=== PATIENT | female | born 1965 | race Caucasian/White ===

== ENCOUNTER 2016-08-03 16:40 | Emergency (ER) | payer OTHER ==
[~2016-08-03] VITALS: Ht 152.4 cm; Wt 62.6 kg
[~2016-08-03 16:40] MED LIST: ALPH-E-MIXED-4400 IU PO; ANTIVERT 12.512.5 MG PO; ANTIVERT 25 MG25 M1 PO; ANTIVERT 25MG #1 PAC PO; ASPIR 8181 MG PO; CARISOPRODOL350 MG PO; CIPRO 500MG TA500 MG PO; CIPRO500 M1 PO; CO Q-10 100 MG-1 SGL PO; CO-Q-10 200 MG-1 SGL PO; CYCLOBENZAPRINE5 M1 PO; EPIPEN ADULT A0.3 MG IM; FIORICET 325 MG1 TAB PO; FISH OIL1000 MG PO; FLAGYL500 MG PO; GUAIFENESIN-COD10 ML PO; HYDROXYZINE HCL25 MG PO; KETOROLAC TR30 MG/ML IM; LAMOTRIGINE25 M3; LEVOTHYROXIN0.025 MG PO; LOMOTIL 2.5-0.1 EACH PO; LORAZEPAM0.5 MG PO; MAGNEBIND 300 21 TAB PO; MEDROL4 MG PO; MULTIVITAMIN1 TAB PO; NORCO 325 MG-101 TAB PO; PHENERGAN25 M1 PO; PHENERGAN25 MG PR; PROMETHAZINE HC25 M1 PO; PROMETHAZINE HC25 M2 PR; SERTRALINE HCL100 MG PO; SERTRALINE HYDR25 MG PO; TOPAMAX 100MG100 MG PO; TOPIRAMATE200 MG PO; TOPIRAMATE50 MG PO; TUMERIC PO; VERAPAMIL HCL120 M2 PO; VICODIN5-300 PO; VITAB121000 PO; VITAMIN B COMPL1 CAP PO; VITAMIN C500 M3 PO; VITAMIN D1000 IU PO; ZOFRAN ODT4 M1 SL; ZOFRAN ODT4 MG PO; ZOFRAN4 M1 PO; ZOLPIDEM TARTRA10 M1 PO; [UNRECOGNIZED DRUG - OTHER] NAS
--- NOTE | 2016-08-03 18:22 | ED HEADACHE COMPLAINT ---
History of Present Illness General Chief Complaint: Headache Stated Complaint: HEADACHE Source: patient, old records Exam Limitations: no limitations Vital Signs & Intake/Output Vital Signs & Intake/Output Vital Signs Date Time Temp Pulse Resp B/P Pulse O2 O2 Flow FiO2 Ox Delivery Rate 08/03 1854 96 08/03 1851 98.0 08/03 1728 98.0 74 20 137/82 97 Room Air Allergies Coded Allergies: cefaclor (From CECLOR) (RASH AND HIVES 03/07/16) divalproex sodium (From DEPAKOTE) (RASH AND HIVES 03/07/16) erythromycin base (RASH AND HIVES 03/07/16) fentanyl (TONGUE SWELLING 03/07/16) hydromorphone (CAUSES LABORED BREATHING PER PT 03/07/16) metoclopramide (From REGLAN) (TONGUE SWELLING 03/07/16) prochlorperazine (From COMPAZINE) (TONGUE SWELLING 03/07/16) shellfish derived (ANAPHYLAXIS 03/07/16) sumatriptan (From IMITREX) (POTENTIAL TO CAUSE A STROKE PER PT 03/07/16) Uncoded Allergies: 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) Reconcile Medications Acetaminophen/Butalbital/Caf (Fioricet 325 MG-50 MG-40 MG) 1 TAB TAB 1 TAB PO 3XW PRN MIGRAINES (Reported) Acetaminophen/Hydrocodone Bi ([place] 325 MG-10 MG) 1 TAB TAB 1 TAB PO TID PRN MIGRAINES/PAIN (Reported) Ascorbic Acid (Vitamin C) 500 MG TAB 1 TAB PO DAILY SUPPLEMENT (Reported) Aspirin (Ecotrin) 81 MG TABLET.DR 1 TAB PO DAILY MIGRAINES (Reported) CALCIUM CARBONATE/MAG CARB (Magnebind 300 Tablet) (Unknown Strength) TABLET ( Unknown Dose) PO DAILY SUPPLEMENT (Reported) Carisoprodol 350 MG TABLET 1 TAB PO TID FIBROMYALGIA (Reported) Cholecalciferol (Vitamin D3) 1,000 UNIT TABLET 1,000 IU PO DAILY VITAMIN D SUPPLEMET (Reported) Ciprofloxacin HCl (Cipro) 500 MG TABLET 1 TAB PO BID intestinal infection Coenzyme Q10/Vitamin E (Co Q-10 100 MG-5 Iu) 1 SGL SGL 1 SGL PO DAILY SUPPLEMENT (Reported) Diphenoxylate HCl/Atropine (Lomotil 2.5-0.025 MG Tablet) 1 EACH TABLET 1 TAB PO 4 TIMES/DAY PRN DIARRHEA TWENTY... [id number] Epinephrine (Epipen 2-Delmar) 0.3 MG/0.3 ML AUTO.INJCT 0.3 MG IM PRN ANAPHYLAXIS (Reported) Ketorolac Tromethamine 30 MG/ML RAMIRO 1 ML IM EVERY 2 WEEKS PRN MIGRAINES ( Reported) Levothyroxine Sodium 25 MCG TABLET 0.025 MG PO DAILY AC THYROID (Reported) Lorazepam 0.5 MG TABLET 1 TAB PO BID PRN PANIC ATTACK (Reported) Meclizine (Antivert) 12.5 MG TAB 1 TAB PO TID VERTIGO (Reported) Metronidazole (Flagyl) 500 MG TABLET 1 TAB PO 4 TIMES/DAY intestinal infection Multivitamin (Multiple Vitamins) 1 EACH TABLET 1 TAB PO DAILY SUPPLEMENT ( Reported) OMEGA-3/DHA/EPA/FISH OIL (Carter-3 Fish Oil 1,000 MG Sftg) 300 MG-1,000 MG CAPSULE 1 SGL PO DAILY SUPPLEMENT (Reported) Ondansetron (Zofran Odt) 4 MG TAB.RAPDIS 1 TAB SL TID PRN NAUSEA Promethazine Hydrochloride (Phenergan) 25 MG SUP 1 SUPP MA PRN MIGRAINES ( Reported) Robitussin AC (Guaifenesin-Codeine Syrup) 200 MG-20 MG/10 ML LIQUID 10 ML PO Q6HR PRN COUGH Sertraline HCl 100 MG TABLET 1 TAB PO DAILY MENTAL HEALTH (Reported) Topiramate 200 MG TABLET 1 TAB PO DAILY MIGRAINES (Reported) Topiramate (Topamax 100MG) 100 MG TAB 1 TAB PO DAILY MIGRAINES (Reported) [TUMERIC] 1 CAP PO DAILY SUPPLEMENT (Reported) VERAPAMIL HCL (Verapamil ER) 120 MG TABLET.ER 1 TAB PO DAILY MIGRAINES ( Reported) Vitamin B Complex 1 CAP CAP 1 CAP PO DAILY SUPPLEMENT (Reported) Vitamin E (Olab-I-Odrky-400) 400 IU SGL 1 SGL PO DAILY SUPPLEMENT (Reported) Zolpidem Tartrate 10 MG TABLET 0.5 TAB PO QPM PRN SLEEP (Reported) Triage Note: RECEIVED 51 YO FEMALE C/O MIGRAINE H/A SINCE MONDAY NIGHT, MILDLY X 2 MONTHS. PT ALSO HAD CONSTIPATION X 7 DAYS, TOOK CITRATE OF MAG, NOW HAD DIARRHEA. PT LOWER REPORTS ABDOMINAL CRAMPING PAIN WITH NAUSEA AND VOMITING. PT ALSO C/O VERTIGO Triage Nurses Notes Reviewed? yes Onset: Gradual Duration: day(s): (4), constant Timing: recent history Quality/Severity: moderate, achy, constant Severity Numbers: 5 Head Injury Location: global No Modifying Factors: none Associated Symptoms: nausea/vomiting, diarrhea, vertigo HPI: 51-year-old female with history of migraine headaches, vertigo fibromyalgia presents to emergency room complaining of multiple complaints. First she reports a Four-day history of a migraine headache which she states feels similar to her typical headaches ever unrelieved with all her medication she's S at home including IM Toradol. She states she's had intermittent headaches over the past several months. The patient is also complaining that she was constipated for one week for which she took [id number] stool softeners and magnesium citrate and has had persistent diarrhea since. She denies any black or bloody stools were she reports positive nausea denies vomiting. She is reporting to crampy intermittent abdominal pain with the diarrhea her last episode was this morning. She last took Toradol yesterday. She is also complaining of vertigo secondary to her symptoms and burning with urination which she states she's been attempting to use [id number] urinary tract infection medications without improvement no fevers no chills no vision changes no recent fall or head trauma (KIERA CONLEY) Past History Travel History Traveled to [place] past 21 day No Medical History Any Pertinent Medical History? see below for history Neurological: vertigo, HEMIPLEGIC MIGRAINES EENT: cataracts Cardiovascular: MITRAL VALVE PROLAPSE Respiratory: asthma, "EXERCISE INDUCED ASTHMA" Gastrointestinal: NONE Hepatic: cholelithiasis Renal: nephrolithiasis Musculoskeletal: fibromyalgia, rheumatoid arthritis, sciatica, spinal stenosis, PINCHED NERVE DAMAGED DISK Psychiatric: anxiety, chronic pain disorder, PANIC DISORDER Endocrine: hypothyroidism Blood Disorders: NONE Cancer(s): NONE ELEVATOR SERVICEMAN/Reproductive: fibroid, yeast infections, OVARIAN CYSTS Surgical History Surgical History: appendectomy, cholecystectomy Psychosocial History What is your primary language Peruvian Tobacco Use: Never used Family History Hx Contributory? No (KIERA CONLEY) Review of Systems Review of Systems Constitutional: Reports: see HPI. All Other Systems: Reviewed and Negative Comments Review of systems: See HPI, All other systems negative. Constitutional, no chills no fever, no malaise HEENT: No visual changes no sore throat no congestion, Cardiovascular: No chest pain , no palpitation Skin, no rashes, no change in skin Respiratory: No dyspnea no cough no sputum GI: nausea no vomiting, diarrhea constipation : dysuria Muscle skeletal: No joint pain, no back pain, no neck pain, Neurologic: No numbness no confusion, headache Psych: No stress Heme/endocrine: No bruising no bleeding no polyuria no polydipsia Immunology: No lymphadenopathy, (KIERA CONLEY) Physical Exam Physical Exam General Appearance: well developed/nourished, alert, awake Cranial Nerves: normal hearing, normal speech, PERRL Comments: Well-developed well-nourished person in no acute distress HEENT: Normal EENT exam; PERRL, EOMI, no nystagmus. HEAD is atraumatic. moist mucous membranes. Neck: Supple, no lymphadenopathy, normal range of motion Back: Nontender, no CVA tenderness. Full range of motion Cardiovascular: Regular rate and rhythms no murmurs rubs Respiratory: No respiratory distress. Patient speaking in full complete sentences. Breath sounds clear to auscultation bilaterally: NO W/R/R Abdomen: Soft, nontender nondistended, no appreciable organomegaly. Normal bowel sounds. No rebound/guarding, Extremity: No edema, full range of motion of extremities Neuro: Alert oriented x3, motor sensory normal, cranial nerves II through XII grossly intact. There were no obvious focal neurologic abnormalities. Skin: No appreciable rash on exposed skin, skin is warm and dry. Psych: Mood and affect is normal, memory and judgment is normal. Core Measures Severe Sepsis Present: No Septic Shock Present: No (KIERA CONLEY) Progress Differential Diagnosis: cluster BURGOS, encephalitis, IC mass/tumor, intracranial Hem., meningitis, migraine BURGOS, musculoskeletal pain, sinusitis, subarach. Hem., tension BURGOS, electrolyte abnormality diverticulitis colitis UTI malignancy Plan of Care: Orders Procedure Date/time Status URINE DRUG SCREEN FOR ER ONLY 08/03 1906 Complete COMPREHENSIVE METABOLIC PANEL 08/03 1820 Complete CBC WITHOUT DIFFERENTIAL 08/03 182 Complete URINALYSIS 08/03 1730 Complete Current Medications Sig/Patrice Start time Last Medication Dose Stop Time Status Admin Diphenhydramine HCl 50 MG ONCE ONE 08/03 2244 UNVr (Benadryl) 08/03 2245 Morphine Sulfate 6 MG ONCE ONE 08/03 2244 UNVr (Morphine) 08/03 2245 Dexamethasone 8 MG ONCE ONE 08/03 2029 CAN (Decadron) 08/03 2030 Laboratory Tests 08/03/161922: Anion Gap 11, Estimated GFR > 60, BUN/Creatinine Ratio 28.6 H, Glucose 80, Calcium 8.9, Total Bilirubin 0.3, AST 17, ALT 34, Alkaline Phosphatase 65, Total Protein 6.5, Albumin 3.7, Globulin 2.8, Albumin/Globulin Ratio 1.3, CBC w Diff NO MAN DIFF REQ, RBC 4.23, MCV 84.6, MCH 28.6, RDW 14.5, MPV 10.0, Gran % 46.6, Lymphocytes % 43.0, Monocytes % 6.7, Eosinophils % 2.7, Basophils % 1.0, Absolute Granulocytes 3.3, Absolute Lymphocytes 3.1, Absolute Monocytes 0.5, Absolute Eosinophils 0.2, Absolute Basophils 0.1, PUBS MCHC 33.8 08/03/16 1900: Urine Opiates Screen > 4000.00 H, Methadone Screen 123, Barbiturate Screen > 800 H, Ur Phencyclidine Scrn 10.10, Amphetamines Screen < 100, U Benzodiazepines Scrn < 85, Urine Cocaine Screen < 50, Urine Cannabis Screen < 5.00, Urine Color YEL, Urine Clarity CLEAR, Urine pH 5.5, Ur Specific [place] >= 1.030, Urine Protein NEG, Urine Ketones NEG, Urine Nitrite NEG, Urine Bilirubin NEG, Urine Urobilinogen 0.2, Ur Leukocyte Esterase NEG, Ur Microscopic EXAM NOT REQUIRED, Urine Hemoglobin NEG, Urine Glucose NEG The patient has been seen numerous times in the past old records reviewed shows previous notes suspect narcotic abuse. The patient upon my immediate walking into the room states argued the one that took care of me last time that I complained about" afterwards the patient states when asked why she waited this long for her symptoms stated" to know what it took for me to come to this hospital" when I asked her why then she did not go somewhere else she stated to myself that she has PTSD due to family deaths at other hospitals. I discussed with her calmly and politely that we can medicate her with Toradol and IV Tylenol however given her allergies to hydromorphone and other narcotics despite morphine listed that we cannot give her this medication given her previous pruritic reaction after being medicated with morphine, labs were ordered old records reviewed 08/03/2016 7:31:01 PM discussed with the patient her labs to date she reports her abdominal pain has resolved nausea headache persist however. Patient has had no episodes of dry heaving or vomiting here pending rest of her labs sent will continue monitor 08/03/2016 8:30:00 PM discussed with the patient all of her lab results to date. Patient reports nausea abdominal pain has resolved she's not had any episodes of diarrhea here in the department. Patient is again requesting morphine which I discussed with her given her previous pruritic allergic reaction that that would not be lux or warranted also given her opioid level in her urine being greater than 4000 that it is not safe we'll treat her with 1 g of magnesium Decadron IV, Valium 2.5 g IV case was discussed with and signed out to Dr. Marie pending reeval (KIERA CONLEY) Hand-Off Endorsed To: CEHN MARIE MD Endorsed Time: 2028 Pending: other (REEVAL) (KIERA CONLEY) Departure Departure Condition: Stable Clinical Impression Primary Impression: Headache Referrals: UNKNOWN (PCP/Family) Departure Forms: Customer Survey General Discharge Information (KIERA CONLEY) Departure Disposition: HOME OR SELF CARE Additional Instructions: Follow-up with her neurologist. Return for any concerns. PA/STRATEGIC PLANNING ANALYST Co-Sign Statement Statement: ED Attending supervision documentation- [X] I saw and evaluated the patient. I have also reviewed all the pertinent lab results and diagnostic results. I agree with the findings and the plan of care as documented in the PA's/STRATEGIC PLANNING ANALYST's documentation. [X] I have reviewed the ED Record and agree with the PA's/STRATEGIC PLANNING ANALYST's documentation. [] Additions or exceptions (if any) to the PAs/STRATEGIC PLANNING ANALYST's note and plan are summarized below: [] (FRANK COLLINS,CHEN Lance)
[2016-08-03 19:55] LABS: ABSOLUTE BASOPHIL COUNT 0.1 /CUMM (0.0-0.2); ABSOLUTE EOSINOPHIL COUNT 0.2 /CUMM (0.0-0.7); ABSOLUTE GRANULOCYTE CT 3.3 /CUMM (1.4-6.5); ABSOLUTE LYMPH COUNT 3.1 /CUMM (1.2-3.4); ABSOLUTE MONOCYTE COUNT 0.5 /CUMM (0.10-0.60); EOSINOPHIL % 2.7 % (0-5); GRANULOCYTE % 46.6 % (42.2-75.2); HEMATOCRIT 35.8 % (37-47); MEAN CORPUSCULAR HGB 28.6 PG (27.0-31.0); MEAN CORPUSCULAR HGB CONC 33.8 G/DL (33.0-37.0); MEAN CORPUSCULAR VOLUME 84.6 FL (81.0-99.0); PLATELET COUNT 175 /CUMM (130-400); RBC DISTRIBUTION WIDTH 14.5 % (11.5-14.5); RED BLOOD CELL CT 4.23 /CUMM (4.20-5.40); WHITE BLOOD CELL COUNT 7.2 /CUMM (4.8-10.8)
[2016-08-03 23:20] VITALS: BP 140/63
== END 2016-08-03 23:21 ==
LOC: ERH 16:40
PROVIDERS: Physician Assistant Medical
DX: R51 Headache (principal); R19.7 Diarrhea, unspecified; R10.9 Unspecified abdominal pain; R42 Dizziness and giddiness
CPT/HCPCS: 80307; 81003; 96361; 96374; 96375; 96376; J0131; J1200; J1885; J2405; J3360